=== PATIENT | female | born 1935 | race Caucasian/White ===

== ENCOUNTER 2017-03-23 18:56 | Inpatient (IN) ==
[2017-03-23] MEDS ORDERED: 0.9 % Sodium Chloride 500 ML ONE (20:42)
[2017-03-23] MEDS ORDERED: Ondansetron 4 MG/2 ML VIAL IVP PRN (20:52)
[2017-03-23] MEDS ORDERED: Naloxone 0.4 MG/ML INJ IVP PRN (20:52)
[2017-03-23] MEDS ORDERED: Acetaminophen 325 MG TABLET PO PRN (20:52)
[2017-03-23] MEDS ORDERED: dilTIAZem HCl 60 MG TABLET PO SCH (21:30)
--- NOTE | 2017-03-23 21:30 | Internal Med History&Physical ---
Date of Encounter: 03/23/17 Time of Encounter: 21:10 Assessment and Plan (1) Atrial fibrillation with rapid ventricular response Current visit: Yes Status: Acute Patient has a history of permanent atrial fibrillation on Cardizem 240 mg extended release in the morning and on Coumadin. After her physical therapy session, the patient started experiencing palpitations and was found to have rapid ventricular response with her atrial fibrillation. EKG reveals atrial fibrillation with RVR. Patient will be admitted to inpatient status. Expected to be in the hospital for at least 2 midnights. Expected discharge disposition is back to inpatient rehabilitation facility. High risk due to risk of lethal arrhythmias. Patient has already been started on Cardizem drip at 5 mg per hour. Will titrate to achieve heart rate less than 90/min. Resume long-acting Cardizem tomorrow morning. Short-acting Cardizem tonight. Patient may need additional beta luiz or increasing the dose of Cardizem depending on response to therapy. Continue Coumadin for goal INR between 2-3. Will obtain records from [facility] regarding her recent echocardiogram and regarding her CVA stay. (2) CAD (coronary artery disease) Current visit: Yes Status: Chronic Status post CABG and pig valve replacement in 1995. Stable without angina currently. Continue aspirin and statin. Qualifiers: Coronary Disease-Associated Artery/Lesion type: elem artery [place] vs. transplanted heart: elem heart Associated angina: without angina Qualified Code(s): I25.10 - Atherosclerotic heart disease of elem coronary artery without angina pectoris (3) CVA (cerebral vascular accident) Current visit: Yes Status: Chronic CVA early March at [facility]. Will obtain records from the same. Continue aspirin and statin with Coumadin. Qualifiers: CVA mechanism: unspecified Qualified Code(s): I63.9 - Cerebral infarction, unspecified (4) GERD (gastroesophageal reflux disease) Current visit: Yes Status: Chronic Stable. Home medications. Qualifiers: Esophagitis presence: esophagitis presence not specified Qualified Code(s) : K21.9 - Gastro-esophageal reflux disease without esophagitis Internal Medicine - H&P: HPI Chief complaint: Palpitations Admitted From: Hospital to Hospital Transfer Plans for Post Hospital Care: Transfer Inp Rehab Fac History of present illness: Ms. Louis is a 81 year old female who was transferred from [facility] due to atrial fibrillation with rapid ventricular response. The patient is currently accompanied by the who has assisted with history. The patient was at her baseline in February. Early March, she suffered an acute CVA and was transferred to [facility] where she was taking care of for her CVA. Apparently, she was diagnosed with atrial fibrillation in the month of February when she went to an urgent care facility with palpitations. And [facility], she was placed on heparin drip and transitioned to Coumadin for atrial fibrillation. She was discharged to inpatient rehabilitation facility. The patient has been participating with rehabilitation. According to the , today the patient participating with physical therapy and was doing extremely well. After her therapy session, the patient started experiencing palpitations. Hence, she was sent to the emergency department and found to have atrial fibrillation with rapid and regular response. She has been started on a Cardizem drip and transferred to [facility] for further management. Currently , patient reports palpitations and some shortness of breath. She denies orthopnea, PND, chest pain, cough or wheezing. She reports some chills but denies any fevers. She reports feeling lightheaded. She denies any headache or weakness in her arms or legs. She does report some difficulty with her speech. She denies any abdominal pain, nausea, vomiting. She denies any diarrhea but she does have some constipation. She denies any swelling in her feet or recent weight changes. Past Med Surg Social Fam HX - Past Medical History Attestation: Yes The following information was validated with the patient. Source: patient, obtained from family Medical history: arthritis, atrial fibrillation, cancer, CHF, coronary artery disease, CVA, GERD, hyperlipidemia, seizures Psychiatric history: no psych history - Past Surgical History Surgical History: cholecystectomy, coronary bypass (CABG), heart valve replacement (Aortic valve, bioprosthetic), herniorrhaphy, other (Partial small bowel resection for cancer) - Social History Smoking Status: Never smoker Smokeless Tobacco Status: No Alcohol use: none Drug use: none Current living situation: Home, With Family Activity Level: Uses cane/walker Recent Out of Country Travel Within the Last 8 Weeks: No Exposure or Possible Exposure to Illness During Travel: No - Additional Family History Additional family history: Reviewed; not pertinent Internal Medicine - H&P: Meds Furosemide [Lasix] 40 mg PO DAILY 05/03/16 [History] Aspirin 81 mg PO DAILY 03/12/17 [History] Diltiazem CD (24hr) [Cardizem CD] 240 mg PO DAILY 03/23/17 [History] Enoxaparin [Lovenox] 50 mg SQ BID 03/23/17 [History] Nitroglycerin [Nitrostat] 0.4 mg SL AD PRN 03/23/17 [History] Potassium Chloride [Klor-Con 10] 20 meq PO DAILY 03/23/17 [History] Sennosides [Senna] 8.6 mg PO BID 03/23/17 [History] Warfarin [Coumadin] 1 mg PO 1800 03/23/17 [History] Allergies Penicillins Allergy (Verified 05/03/16 02:16) Swelling of Lip/Tongue/Throat Sulfa (Sulfonamide Antibiotics) Allergy (Verified 05/03/16 02:16) Rash All Systems PM: A 10-system review of systems was performed and is negative for pertinent findings except as documented above in the HPI. Review of systems: 10 systems have been reviewed and are negative except as mentioned in the history of present illness - Constitutional Vitals: Temp Pulse Resp BP Pulse Ox 97.5 F L 118 17 139/83 99 03/23/17 20:42 03/23/17 20:42 03/23/17 20:42 03/23/17 20:42 03/23/17 20:42 Exam: Gen.: Lying in bed. Mild distress. Eyes: Pupils equal, round and reactive to light. Extraocular muscles intact. ENT: Dry mucous membranes. No oropharyngeal erythema or discharge. Chest: Clear to auscultation bilaterally. No adventitious sounds present. CVS: First and second heart sounds present. No murmurs, rubs or gallops. Irregularly irregular rate and rhythm. Tachycardia present. Midline CABG scar present. Abdomen: Soft, nontender, nondistended. Bowel sounds present. No hepatosplenomegaly. Skin: No decubitus ulcers appreciated. BUTCHER ASSISTANT: Power of 5/5 in left upper extremity and bilateral lower extremity is. Power of 4/5 in the right upper extremity. Psychiatric: Alert, awake and oriented to time, place and person. Lymphatic system: No lymphadenopathy appreciated Internal Med - H&P Results - Labs Labs: Labs from [facility] reviewed-WBC count 11.9; INR 1.8; sodium 140, potassium 4, chloride 95, bicarbonate 23, GFR 51, glucose 140 - EKG Data -: EKG Interpreted by Myself Rate: tachycardia (Atrial fibrillation with rapid ventricular response) - Diagnostic Studies Chest x-ray Status: image reviewed by me (Status post CABG in the past. No acute infiltrates or abnormalities demonstrated.)
[2017-03-23] MEDS: dilTIAZem HCl 60 MG TABLET PO SCH (23:40)
[2017-03-24] MEDS: dilTIAZem HCl 60 MG TABLET PO SCH (04:14)
[2017-03-24] MEDS ORDERED: *HR* Warfarin 1 MG TABLET PO SCH (05:00)
[2017-03-24 05:28] LABS: Basophils % 0.4 %; Eosinophils # 0.2 K/mcL (0.0-0.6); Eosinophils % 1.7 %; Hematocrit 36.9 % (35.3-44.9); Hemoglobin 12.3 g/dL (11.5-15.4); Immature Granulocytes % 0.5 % (0-4); Lymphocytes # 1.3 K/mcL (0.6-4.6); Lymphocytes % 13.7 %; Mean Corpuscular HGB Conc 33.3 g/dL (31.6-35.5); Mean Corpuscular Hemoglobin 30.4 pg (28.0-33.3); Mean Corpuscular Volume 91.3 fL (83.0-100.0); Mean Platelet Volume 11.1 fL (9.4-12.4); Monocytes # 0.9 K/mcL (0.0-1.3); Monocytes % 9.4 %; Platelet Count 183 K/mcL (140-400); Red Blood Count 4.04 M/mcL (3.82-4.97); Red Cell Distribution Width 13.5 % (11.5-14.5); Segmented Neutrophils % 74.3 %
[2017-03-24 05:49] LABS: INR 1.4; Prothrombin Time 15.2 Seconds (9.4-12.1)
[2017-03-24 05:53] LABS: Alanine Aminotransferase 22 Units/L (0-55); Albumin 2.8 g/dL (3.5-5.0); Albumin/Globulin Ratio 0.9 (1.1-2.2); Alkaline Phosphatase 69 Units/L (38-126); Aspartate Amino Transferase 26 Units/L (5-34); BUN/Creatinine Ratio 22 (6-26); Bilirubin,Total 0.6 mg/dL (0.2-1.2); Blood Urea Nitrogen 21 mg/dL (7-20); Calcium 9.3 mg/dL (8.6-10.8); Carbon Dioxide 25 mEq/L (19-29); Chloride 104 mEq/L (98-109); Globulin 3.2 g/dL (2.4-3.5); Glucose 120 mg/dL (70-99); Osmolality,Calculated 290 (280-300); Potassium 3.8 mEq/L (3.5-4.5); Sodium 138 mEq/L (136-145); eGFR For African Americans > 60 (> 60); eGFR For Non-African Americans 56 (> 60)
[2017-03-24] MEDS ORDERED: *HR* Enoxaparin 40 MG/0.4 ML SYRINGE SQ SCH (08:30)
[2017-03-24] MEDS ORDERED: Diltiazem CD (24hr) 240 MG CAPSULE PO SCH (09:00)
[2017-03-24] MEDS ORDERED: Aspirin Enteric Coated 81 MG Tablet PO SCH (09:00)
[2017-03-24] MEDS ORDERED: Sennosides/Docusate Sodium TABLET PO SCH (09:00)
[2017-03-24 11:03] VITALS: BP 128/74
--- NOTE | 2017-03-24 14:01 | Discharge Summary ---
Date of Encounter: 03/24/17 Time of Encounter: 12:00 - Discharge Diagnosis (1) Atrial fibrillation with rapid ventricular response Priority: Primary Status: Acute (2) CAD (coronary artery disease) Priority: Secondary Status: Chronic Qualifiers: Coronary Disease-Associated Artery/Lesion type: [place] artery [place] vs. transplanted heart: [place] heart Associated angina: without angina Qualified Code(s): I25.10 - Atherosclerotic heart disease of [place] coronary artery without angina pectoris (3) CVA (cerebral vascular accident) Priority: Secondary Status: Chronic Qualifiers: CVA mechanism: other Qualified Code(s): I63.8 - Other cerebral infarction (4) GERD (gastroesophageal reflux disease) Priority: Secondary Status: Chronic Qualifiers: Esophagitis presence: esophagitis presence not specified Qualified Code(s) : K21.9 - Gastro-esophageal reflux disease without esophagitis - Discharge Medications Prescriptions: Metoprolol XL (24 HR) Succ [Toprol XL] 25 mg PO DAILY #30 tab.er.24h Home Medications: Furosemide [Lasix] 40 mg PO DAILY 05/03/16 [History] Aspirin 81 mg PO DAILY 03/12/17 [History] Diltiazem CD (24hr) [Cardizem CD] 240 mg PO DAILY 03/23/17 [History] Enoxaparin [Lovenox] 60 mg SQ BID 03/23/17 [History] Nitroglycerin [Nitrostat] 0.4 mg SL Q5M PRN 03/23/17 [History] Potassium Chloride [Klor-Con 10] 20 meq PO DAILY 03/23/17 [History] Metoprolol XL (24 HR) Succ [Toprol XL] 25 mg PO DAILY #30 tab.er.24h 03/24/17 [ Rx] Warfarin [Coumadin] 2 mg PO 1700 #0 03/24/17 [Rx] Allergies/Adverse Reactions: Allergies Penicillins Allergy (Verified 03/24/17 08:07) Swelling of Lip/Tongue/Throat Sulfa (Sulfonamide Antibiotics) Allergy (Verified 03/24/17 08:07) Rash Procedures/tests Complete & Pending: Procedures Performed prior 72 hours Category Date Time Status EKG [ECG 12 lead ECG] [ECG] Routine Y 03/23/17 21:30 Ordered Date of admission: 03/23/17 20:52 Primary care physician: PCP NO Consults: 03/23/17 21:31 Consult to Occupational Therapy [CONS] Routine Comment: Evaluate, develop and implement POC Reason for Consult: Weakness Consult to Physical Therapy [CONS] Routine Comment: Evaluate, develop and implement POC Reason for Consult: Weakness Consult to Speech Therapy [CONS] Routine Comment: Evaluate, develop and implement POC Reason for Consult: Recent CVA Call Completed: No 03/24/17 10:55 Consult to [place] [CONS] Routine Reason for SW Consult: RTN TO [facility] Discharging clinician: Xiomara Browning Anticipated date of discharge: 03/24/17 - Patient Status Disposition: Transfer SNF Condition: Fair Functional capacity at discharge: uses cane/walker Overall status at discharge: patient is progressing back to baseline - Discharge Instructions Follow Up With: NO,PCP [Primary Care Provider] - (Follow up with provider for the management of chronic medical conditions) - Diet and Activity Activity: as per physical therapy Diet: low fat, low cholesterol, low salt diet Hospital course: Ms. Louis is a 81 year old female patient with history of recent CVA, coronary artery disease, A. fib with RVR who is on Coumadin but subtherapeutic presented to the ER with complaints of atrial fibrillation with rapid ventricular response and palpitations. She had been participating in physical therapy when the symptoms began yesterday. In the ER, patient was started on intravenous Cardizem drip at 5 mg per hour. By the time shared that the floor, her heart rate is well controlled and she was transitioned to oral Cardizem. Since then her heart rate has been fairly well controlled and the patient was placed back on her to 40 mg of Cardizem CD. However while participating with physical therapy, it was noted that her heart rate was going up to the 110s and low 120s. She has then been started on Toprol-XL at 25 mg per day. With these 2 medications, her heart rate is now ranging between 60 and 80. She is to continue both these medications. It is expected that her heart rate would rise while she is participating in physical therapy and if she persists to have rapid ventricular response with heart rate greater than 120, her medications will need to be adjusted further. As she is still subtherapeutic, I would recommend continuing Lovenox and also increasing Coumadin dosage to 2 mg daily. Presently, she is feeling much better and is stable to be discharged back to half-way facility much earlier than expected. - Time Spent with Patient Total time spent providing and/or coordinating discharge services: Less than 30 minutes (25 min) - Constitutional Vitals: Temp Pulse Resp BP Pulse Ox 98.3 F 107 16 128/74 90 03/24/17 11:02 03/24/17 11:02 03/24/17 11:02 03/24/17 11:02 03/24/17 11:02 General appearance: Present: cooperative, A&O X 3, answers questions appropriately - Respiratory Respiratory exam: Present: CTAB. Absent: accessory muscle use, rales, rhonchi, wheezes - Cardiovascular Cardiovascular exam: Present: irregular rhythm, +S1, +S2. Absent: diastolic murmur, gallop, rubs, systolic murmur - Extremities Exam Extremities exam: Present: warm, radial pulses palpable and symetrical. Absent : calf tenderness, cyanotic, pedal edema - Neurological Exam Neurological exam: Present: alert, oriented X3. Absent: facial droop, speech deficit - Skin Skin exam: Present: dry, intact - Attending Attestation This document has been at least partially created by [employer] recognition technology by Dr. Browning. Errors in grammar, wording or other phrases may exist. If errors are found after the documentation is signed, they will be addressed individually in the addendum section of this document when appropriate.
--- NOTE | 2017-03-24 14:10 | Physician Discharge Referral ---
ExtendedCare Referral Info Provider in Charge after Transfer: PCP Institutional Level of Care: Skilled - Diagnosis (1) Atrial fibrillation with rapid ventricular response Priority: Primary Status: Acute (2) CAD (coronary artery disease) Priority: Secondary Status: Chronic (3) CVA (cerebral vascular accident) Priority: Secondary Status: Chronic (4) GERD (gastroesophageal reflux disease) Priority: Secondary Status: Chronic Prognosis: Fair Aware of Diagnosis: Patient, Family Aware of Prognosis: Patient, Family - Transfer Medications Home Medications: Furosemide [Lasix] 40 mg PO DAILY 05/03/16 [History] Aspirin 81 mg PO DAILY 03/12/17 [History] Diltiazem CD (24hr) [Cardizem CD] 240 mg PO DAILY 03/23/17 [History] Enoxaparin [Lovenox] 60 mg SQ BID 03/23/17 [History] Nitroglycerin [Nitrostat] 0.4 mg SL Q5M PRN 03/23/17 [History] Potassium Chloride [Klor-Con 10] 20 meq PO DAILY 03/23/17 [History] Metoprolol [Lopressor] 25 mg PO DAILY tablet 03/24/17 [Rx] Warfarin [Coumadin] 2 mg PO 1700 #0 03/24/17 [Rx] Allergies/Adverse Reactions: Allergies Penicillins Allergy (Verified 03/24/17 08:07) Swelling of Lip/Tongue/Throat Sulfa (Sulfonamide Antibiotics) Allergy (Verified 03/24/17 08:07) Rash - Respiratory Orders Smoking Cessation: Smoking cessation has been advised. For more information, call the [place] Tobacco Quit Line at 4-378-WWGA-NOW. - Advance Directives Code Status: Full Code CERTIFICATION: I certify that the transfer of the above named patient to an Extended Care Facility is necessary for the continuing treatment of the diagnosis listed. The above information is true and accurate reflection of patient's current condition. Confidential - Redisclosure prohibited without a patient's written consent.
[2017-03-24] MEDS ORDERED: Aminoglycoside Consult 1 EACH MC ONE (15:14)
[2017-03-24] MEDS ORDERED: Enoxaparin Weight Dosing SQ SCH (18:00)
[2017-03-24] MEDS ORDERED: Warfarin perPT PO PRN (18:00)
== END 2017-03-24 15:15 | DRG 310 ==
LOC: 2ANU
PROVIDERS: ADMIT Registered Nurse; ATTEND Internal Medicine

== ENCOUNTER 2020-12-03 17:12 | Inpatient (IN) ==
[2020-12-03] MEDS ORDERED: Acetaminophen 325 MG TABLET PO PRN (20:58)
[2020-12-03] MEDS ORDERED: Naloxone 0.4 MG/ML INJ IVP PRN (20:58)
[2020-12-03] MEDS: *HR* LORazepam 0.5 MG TABLET PO SCH (21:36)
[2020-12-03] MEDS: Cholecalciferol (D-3) 1,000 UNIT (25MCG) TABLET PO SCH (21:36)
[2020-12-03 21:56] LABS: Phosphorous 2.6 mg/dL (2.7-4.5); Troponin I 0.08 ng/mL (< 0.04)
[2020-12-03] MEDS ORDERED: Azithromycin 250 MG TABLET PO SCH (22:00)
[2020-12-03] MEDS ORDERED: Albuterol 2.5 MG/3 ML NEBULIZER IH PRN (22:03)
[2020-12-03] MEDS ORDERED: predniSONE 20 MG TABLET PO SCH (22:15)
[2020-12-03] MEDS ORDERED: Azithromycin 500 MG in 0.9 % Sodium Chloride 250 ML IVPB SCH (23:45)
[2020-12-03] MEDS: MethylPREDNISolone 40 MG/ML VIAL IVP SCH (23:47)
[2020-12-03] MEDS: Albuterol 2.5 MG/3 ML NEBULIZER IH SCH (23:50)
[2020-12-04 03:35] LABS: BUN/Creatinine Ratio 30 (6-26); Blood Urea Nitrogen 16 mg/dL (8-23); Calcium 8.8 mg/dL (8.6-10.3); Carbon Dioxide 28 mEq/L (23-29); Chloride 106 mEq/L (98-107); Glucose 117 mg/dL (70-105); Osmolality,Calculated 286 (280-300); Potassium 4.6 mEq/L (3.5-5.1); Sodium 137 mEq/L (136-145); eGFR For African Americans > 60 (> 60); eGFR For Non-African Americans > 60 (> 60)
[2020-12-04 03:40] LABS: Basophils % 0.4 %; Eosinophils # 0.1 K/mcL (0.0-0.6); Hematocrit 35.7 % (35.3-44.9); Hemoglobin 11.4 g/dL (11.5-15.4); Immature Granulocytes % 0.2 % (0-4); Immature Platelets 7.9 % (1.1-6.1); Lymphocytes # 0.7 K/mcL (0.6-4.6); Lymphocytes % 14.3 %; Mean Corpuscular HGB Conc 31.9 g/dL (31.6-35.5); Mean Corpuscular Hemoglobin 30.3 pg (28.0-33.3); Mean Corpuscular Volume 94.9 fL (83.0-100.0); Mean Platelet Volume 11.5 fL (9.4-12.4); Monocytes # 0.2 K/mcL (0.0-1.3); Monocytes % 3.9 %; Neutrophils # 3.9 K/mcL (1.6-8.9); Platelet Count 107 K/mcL (140-400); Red Blood Count 3.76 M/mcL (3.82-4.97); Red Cell Distribution Width 12.7 % (11.5-14.5); Segmented Neutrophils % 80.2 %; White Blood Count 4.9 K/mcL (4.3-11.1)
[2020-12-04] MEDS: Albuterol 2.5 MG/3 ML NEBULIZER IH SCH ×6 (03:42→23:05)
[2020-12-04 03:54] LABS: INR 1.2; Prothrombin Time 13.4 Seconds (9.4-12.1)
[2020-12-04] MEDS ORDERED: Perflutren Lipid Microsphere 1.3 ML in 0.9 % Sodium Chloride 8.7 ML IVP PRN ×2 (09:20→15:59)
[2020-12-04] MEDS ORDERED: levoFLOXacin 750 MG/150 ML 750 MG/150 ML BAG IVPB SCH (09:30)
[2020-12-04] MEDS: *HR* LORazepam 0.5 MG TABLET PO SCH ×3 (10:47→21:24)
[2020-12-04] MEDS: Furosemide 20 MG TABLET PO SCH (10:50)
[2020-12-04] MEDS: Cyanocobalamin (B-12) 1,000 MCG TABLET PO SCH (10:50)
[2020-12-04] MEDS: MethylPREDNISolone 40 MG/ML VIAL IVP SCH (10:50)
[2020-12-04] MEDS: Aspirin 81 MG TAB.CHEW PO SCH (10:50)
[2020-12-04] MEDS: *HR* Digoxin 0.125 MG TABLET PO SCH (10:50)
[2020-12-04] MEDS: Cholecalciferol (D-3) 1,000 UNIT (25MCG) TABLET PO SCH (10:51)
[2020-12-04] MEDS: cefTRIAXone 1,000 MG in 0.9 % Sodium Chloride Mini Bag 100 ML IVPB SCH (17:29)
[2020-12-04] MEDS ORDERED: *HR* Warfarin 5 MG TABLET PO ONE (18:00)
[2020-12-04] MEDS ORDERED: Warfarin perPT PO PRN (18:00)
[2020-12-04] MEDS: Azithromycin 500 MG in 0.9 % Sodium Chloride 250 ML IVPB SCH (22:49)
[2020-12-05] MEDS: Albuterol 2.5 MG/3 ML NEBULIZER IH SCH ×6 (05:44→23:03)
[2020-12-05 05:46] LABS: INR 1.2; Prothrombin Time 13.7 Seconds (9.4-12.1)
[2020-12-05 06:04] LABS: Alanine Aminotransferase 79 Units/L (7-52); Albumin/Globulin Ratio 1.2 (1.1-2.2); Alkaline Phosphatase 49 Units/L (34-104); Aspartate Amino Transferase 107 Units/L (13-39); BUN/Creatinine Ratio 33 (6-26); Bilirubin,Total 0.3 mg/dL (0.3-1.0); Blood Urea Nitrogen 22 mg/dL (8-23); Calcium 9.1 mg/dL (8.6-10.3); Carbon Dioxide 28 mEq/L (23-29); Chloride 105 mEq/L (98-107); Globulin 2.6 g/dL (2.4-3.5); Glucose 126 mg/dL (70-105); Osmolality,Calculated 291 (280-300); Potassium 4.2 mEq/L (3.5-5.1); Sodium 138 mEq/L (136-145); Total Protein 5.6 g/dL (6.4-8.9); eGFR For African Americans > 60 (> 60); eGFR For Non-African Americans > 60 (> 60)
[2020-12-05 06:08] LABS: Hematocrit 33.2 % (35.3-44.9); Hemoglobin 10.7 g/dL (11.5-15.4); Mean Corpuscular HGB Conc 32.2 g/dL (31.6-35.5); Mean Corpuscular Hemoglobin 30.7 pg (28.0-33.3); Mean Corpuscular Volume 95.4 fL (83.0-100.0); Mean Platelet Volume 11.4 fL (9.4-12.4); Platelet Count 128 K/mcL (140-400); Red Blood Count 3.48 M/mcL (3.82-4.97); Red Cell Distribution Width 12.6 % (11.5-14.5); White Blood Count 6.3 K/mcL (4.3-11.1)
[2020-12-05] MEDS: Aspirin 81 MG TAB.CHEW PO SCH (08:52)
[2020-12-05] MEDS: Furosemide 20 MG TABLET PO SCH (08:52)
[2020-12-05] MEDS: *HR* Digoxin 0.125 MG TABLET PO SCH (08:52)
[2020-12-05] MEDS: Cholecalciferol (D-3) 1,000 UNIT (25MCG) TABLET PO SCH (08:52)
[2020-12-05] MEDS: Cyanocobalamin (B-12) 1,000 MCG TABLET PO SCH (08:53)
[2020-12-05] MEDS: cefTRIAXone 1,000 MG in 0.9 % Sodium Chloride Mini Bag 100 ML IVPB SCH (08:54)
[2020-12-05] MEDS ORDERED: *HR* LORazepam 0.5 MG TABLET PO PRN (10:04)
[2020-12-05] MEDS: *HR* LORazepam 0.5 MG TABLET PO SCH (10:11)
[2020-12-05] MEDS ORDERED: *HR* Warfarin 3 MG TABLET PO ONE (18:00)
[2020-12-05] MEDS: Azithromycin 500 MG in 0.9 % Sodium Chloride 250 ML IVPB SCH (23:11)
[2020-12-06 02:06] LABS: Hematocrit 34.5 % (35.3-44.9); Mean Corpuscular HGB Conc 31.9 g/dL (31.6-35.5); Mean Corpuscular Hemoglobin 30.3 pg (28.0-33.3); Mean Platelet Volume 10.7 fL (9.4-12.4); Platelet Count 142 K/mcL (140-400); Red Blood Count 3.63 M/mcL (3.82-4.97); Red Cell Distribution Width 12.8 % (11.5-14.5); White Blood Count 6.9 K/mcL (4.3-11.1)
[2020-12-06 02:09] LABS: INR 2.2; Prothrombin Time 24.8 Seconds (9.4-12.1)
[2020-12-06 02:26] LABS: Alanine Aminotransferase 106 Units/L (7-52); Albumin 2.9 g/dL (3.5-5.7); Albumin/Globulin Ratio 1.1 (1.1-2.2); Alkaline Phosphatase 54 Units/L (34-104); Aspartate Amino Transferase 95 Units/L (13-39); BUN/Creatinine Ratio 32 (6-26); Bilirubin,Total 0.4 mg/dL (0.3-1.0); Blood Urea Nitrogen 23 mg/dL (8-23); Carbon Dioxide 35 mEq/L (23-29); Chloride 102 mEq/L (98-107); Globulin 2.6 g/dL (2.4-3.5); Glucose 86 mg/dL (70-105); Osmolality,Calculated 291 (280-300); Potassium 4.4 mEq/L (3.5-5.1); Sodium 139 mEq/L (136-145); Total Protein 5.5 g/dL (6.4-8.9); eGFR For African Americans > 60 (> 60); eGFR For Non-African Americans > 60 (> 60)
[2020-12-06] MEDS: Albuterol 2.5 MG/3 ML NEBULIZER IH SCH ×6 (03:15→23:15)
[2020-12-06] MEDS: Cholecalciferol (D-3) 1,000 UNIT (25MCG) TABLET PO SCH (08:51)
[2020-12-06] MEDS: *HR* Digoxin 0.125 MG TABLET PO SCH (08:52)
[2020-12-06] MEDS: Furosemide 20 MG TABLET PO SCH (08:52)
[2020-12-06] MEDS: cefTRIAXone 1,000 MG in 0.9 % Sodium Chloride Mini Bag 100 ML IVPB SCH (08:52)
[2020-12-06] MEDS: Cyanocobalamin (B-12) 1,000 MCG TABLET PO SCH (08:53)
[2020-12-06] MEDS: Aspirin 81 MG TAB.CHEW PO SCH (08:53)
[2020-12-06] MEDS: Ondansetron ODT 4 MG TAB.RAPDIS SL PRN ×2 (12:56→22:32)
[2020-12-06] MEDS ORDERED: *HR* Warfarin 0.5 MG TABLET PO ONE (18:00)
[2020-12-06] MEDS: Azithromycin 500 MG in 0.9 % Sodium Chloride 250 ML IVPB SCH (22:32)
[2020-12-07] MEDS: Albuterol 2.5 MG/3 ML NEBULIZER IH SCH ×6 (03:23→23:09)
[2020-12-07 06:48] LABS: Hematocrit 34.6 % (35.3-44.9); Hemoglobin 11.1 g/dL (11.5-15.4); Mean Corpuscular HGB Conc 32.1 g/dL (31.6-35.5); Mean Corpuscular Hemoglobin 30.5 pg (28.0-33.3); Mean Corpuscular Volume 95.1 fL (83.0-100.0); Mean Platelet Volume 10.8 fL (9.4-12.4); Platelet Count 162 K/mcL (140-400); Red Blood Count 3.64 M/mcL (3.82-4.97); White Blood Count 6.4 K/mcL (4.3-11.1)
[2020-12-07 06:50] LABS: INR 2.4
[2020-12-07 07:25] LABS: Alanine Aminotransferase 68 Units/L (7-52); Albumin 2.8 g/dL (3.5-5.7); Alkaline Phosphatase 51 Units/L (34-104); Aspartate Amino Transferase 36 Units/L (13-39); BUN/Creatinine Ratio 27 (6-26); Bilirubin,Total 0.4 mg/dL (0.3-1.0); Blood Urea Nitrogen 18 mg/dL (8-23); Calcium 8.9 mg/dL (8.6-10.3); Carbon Dioxide 34 mEq/L (23-29); Chloride 101 mEq/L (98-107); Globulin 2.7 g/dL (2.4-3.5); Glucose 99 mg/dL (70-105); Osmolality,Calculated 290 (280-300); Potassium 4.3 mEq/L (3.5-5.1); Sodium 139 mEq/L (136-145); Total Protein 5.5 g/dL (6.4-8.9); eGFR For African Americans > 60 (> 60); eGFR For Non-African Americans > 60 (> 60)
[2020-12-07] MEDS: Cholecalciferol (D-3) 1,000 UNIT (25MCG) TABLET PO SCH (10:25)
[2020-12-07] MEDS: Aspirin 81 MG TAB.CHEW PO SCH (10:25)
[2020-12-07] MEDS: *HR* Digoxin 0.125 MG TABLET PO SCH (10:26)
[2020-12-07] MEDS: Furosemide 20 MG TABLET PO SCH (10:26)
[2020-12-07] MEDS: Cyanocobalamin (B-12) 1,000 MCG TABLET PO SCH (10:27)
[2020-12-07] MEDS: cefTRIAXone 1,000 MG in 0.9 % Sodium Chloride Mini Bag 100 ML IVPB SCH (10:27)
[2020-12-07] MEDS ORDERED: *HR* Warfarin 2.5 MG TABLET PO ONE (18:00)
[2020-12-07] MEDS: Azithromycin 500 MG in 0.9 % Sodium Chloride 250 ML IVPB SCH (21:54)
[2020-12-07 23:23] LABS: Adenovirus Not Detected (Not Detect); Bordetella Pertussis Not Detected (Not Detect); Chlamydophila pneumoniae Not Detected (Not Detect); Coronavirus 229E Not Detected (Not Detect); Coronavirus HKU1 Not Detected (Not Detect); Coronavirus NL63 Not Detected (Not Detect); Coronavirus OC43 Not Detected (Not Detect); Human Metapneumovirus Not Detected (Not Detect); Human Rhinovirus/Enterovirus Not Detected (Not Detect); Influenza A Subtype 2009 H1 Not Detected (Not Detect); Influenza B Not Detected (Not Detect); Mycoplasma pneumoniae Not Detected (Not Detect); Parainfluenza Virus 1 Not Detected (Not Detect); Parainfluenza Virus 2 Not Detected (Not Detect); Parainfluenza Virus 3 Not Detected (Not Detect); Parainfluenza Virus 4 Not Detected (Not Detect); Respiratory Syncytial Virus Not Detected (Not Detect); SARS-CoV-2 Not Detected (Not Detect)
[2020-12-08 02:19] LABS: Hematocrit 34.2 % (35.3-44.9); Mean Corpuscular HGB Conc 32.2 g/dL (31.6-35.5); Mean Corpuscular Hemoglobin 30.5 pg (28.0-33.3); Mean Corpuscular Volume 94.7 fL (83.0-100.0); Mean Platelet Volume 11.2 fL (9.4-12.4); Platelet Count 164 K/mcL (140-400); Red Blood Count 3.61 M/mcL (3.82-4.97); Red Cell Distribution Width 13.1 % (11.5-14.5); White Blood Count 6.5 K/mcL (4.3-11.1)
[2020-12-08 02:20] LABS: INR 2.4; Prothrombin Time 26.8 Seconds (9.4-12.1)
[2020-12-08 02:44] LABS: Alanine Aminotransferase 53 Units/L (7-52); Albumin 2.9 g/dL (3.5-5.7); Albumin/Globulin Ratio 1.2 (1.1-2.2); Alkaline Phosphatase 47 Units/L (34-104); Aspartate Amino Transferase 28 Units/L (13-39); BUN/Creatinine Ratio 20 (6-26); Bilirubin,Total 0.4 mg/dL (0.3-1.0); Blood Urea Nitrogen 15 mg/dL (8-23); Calcium 8.6 mg/dL (8.6-10.3); Carbon Dioxide 31 mEq/L (23-29); Chloride 102 mEq/L (98-107); Globulin 2.5 g/dL (2.4-3.5); Glucose 96 mg/dL (70-105); Osmolality,Calculated 289 (280-300); Potassium 4.4 mEq/L (3.5-5.1); Sodium 139 mEq/L (136-145); Total Protein 5.4 g/dL (6.4-8.9); eGFR For African Americans > 60 (> 60); eGFR For Non-African Americans > 60 (> 60)
[2020-12-08] MEDS: Albuterol 2.5 MG/3 ML NEBULIZER IH SCH ×3 (03:37→11:42)
[2020-12-08] MEDS: Furosemide 20 MG TABLET PO SCH (09:28)
[2020-12-08] MEDS: *HR* Digoxin 0.125 MG TABLET PO SCH (09:28)
[2020-12-08] MEDS: Aspirin 81 MG TAB.CHEW PO SCH (09:28)
[2020-12-08] MEDS: Cholecalciferol (D-3) 1,000 UNIT (25MCG) TABLET PO SCH (09:29)
[2020-12-08] MEDS: cefTRIAXone 1,000 MG in 0.9 % Sodium Chloride Mini Bag 100 ML IVPB SCH (09:29)
[2020-12-08] MEDS: Cyanocobalamin (B-12) 1,000 MCG TABLET PO SCH (09:30)
[2020-12-08 11:27] VITALS: BP 92/53
[2020-12-08] MEDS ORDERED: *HR* Warfarin 2.5 MG TABLET PO ONE (18:00)
== END 2020-12-08 14:25 | disposition other institution (70) | DRG 308 ==
LOC: 3BNU 19:30 → SUATTDRO 19:30 → INTOOBSV 19:30
PROVIDERS: ADMIT Internal Medicine; ATTEND Registered Nurse

== ENCOUNTER 2021-01-12 16:30 | Inpatient (IN) ==
[2021-01-12] MEDS ORDERED: Acetaminophen 325 MG TABLET PO PRN (20:31)
[2021-01-12] MEDS ORDERED: Naloxone 0.4 MG/ML INJ IVP PRN (20:31)
[2021-01-12] MEDS ORDERED: Ondansetron 4 MG/2 ML VIAL IVP PRN (20:31)
[2021-01-12] MEDS ORDERED: *HR* HYDROcodone/Acet 5/325 mg TABLET PO PRN (20:31)
[2021-01-12] MEDS ORDERED: *HR* LORazepam 0.5 MG TABLET PO PRN (22:11)
[2021-01-12] MEDS: rOPINIRole 1 MG TABLET PO SCH (22:39)
[2021-01-13 04:53] LABS: Basophils # 0.1 K/mcL (0.0-0.2); Basophils % 0.7 %; Eosinophils # 0.4 K/mcL (0.0-0.6); Eosinophils % 4.1 %; Hematocrit 34.8 % (35.3-44.9); Hemoglobin 11.3 g/dL (11.5-15.4); Immature Granulocytes % 0.2 % (0-4); Lymphocytes # 1.3 K/mcL (0.6-4.6); Lymphocytes % 14.8 %; Mean Corpuscular HGB Conc 32.5 g/dL (31.6-35.5); Mean Corpuscular Hemoglobin 30.3 pg (28.0-33.3); Mean Corpuscular Volume 93.3 fL (83.0-100.0); Mean Platelet Volume 11.7 fL (9.4-12.4); Monocytes # 0.6 K/mcL (0.0-1.3); Monocytes % 6.5 %; Neutrophils # 6.6 K/mcL (1.6-8.9); Platelet Count 135 K/mcL (140-400); Red Blood Count 3.73 M/mcL (3.82-4.97); Segmented Neutrophils % 73.7 %; White Blood Count 8.9 K/mcL (4.3-11.1)
[2021-01-13 05:03] LABS: INR 3.5; Prothrombin Time 38.6 Seconds (9.4-12.1)
[2021-01-13 05:09] LABS: BUN/Creatinine Ratio 30 (6-26); Blood Urea Nitrogen 16 mg/dL (8-23); Calcium 8.7 mg/dL (8.6-10.3); Carbon Dioxide 17 mEq/L (23-29); Chloride 116 mEq/L (98-107); Glucose 83 mg/dL (70-105); Osmolality,Calculated 290 (280-300); Potassium 3.9 mEq/L (3.5-5.1); Sodium 140 mEq/L (136-145); eGFR For African Americans > 60 (> 60); eGFR For Non-African Americans > 60 (> 60)
[2021-01-13] MEDS ORDERED: 0.9 % Sodium Chloride 250 ML IVC SCH (08:00)
[2021-01-13] MEDS: *HR* Digoxin 0.125 MG TABLET PO SCH (08:06)
[2021-01-13] MEDS: Metoprolol XL (24 HR) Succ 25 MG TAB.ER.24H PO SCH ×3 (08:06→22:44)
[2021-01-13] MEDS: Venlafaxine XR (24 HR) 75 MG CAP.ER.24H PO SCH (08:06)
[2021-01-13] MEDS ORDERED: Furosemide 20 MG TABLET PO SCH (09:00)
[2021-01-13] MEDS ORDERED: Metoprolol XL (24 HR) Succ 25 MG TAB.ER.24H PO ONE (14:26)
[2021-01-13] MEDS ORDERED: OLANZapine 5 MG TAB.RAPDIS PO SCH (21:00)
[2021-01-13] MEDS: rOPINIRole 1 MG TABLET PO SCH (22:44)
[2021-01-14 01:14] LABS: Basophils % 0.4 %; Eosinophils # 0.3 K/mcL (0.0-0.6); Eosinophils % 3.1 %; Hematocrit 36.1 % (35.3-44.9); Hemoglobin 11.5 g/dL (11.5-15.4); Immature Granulocytes % 0.2 % (0-4); Lymphocytes # 1.5 K/mcL (0.6-4.6); Lymphocytes % 14.6 %; Mean Corpuscular HGB Conc 31.9 g/dL (31.6-35.5); Mean Corpuscular Hemoglobin 29.9 pg (28.0-33.3); Mean Corpuscular Volume 93.8 fL (83.0-100.0); Mean Platelet Volume 11.9 fL (9.4-12.4); Monocytes # 0.8 K/mcL (0.0-1.3); Monocytes % 7.7 %; Neutrophils # 7.3 K/mcL (1.6-8.9); Platelet Count 137 K/mcL (140-400); Red Blood Count 3.85 M/mcL (3.82-4.97); Red Cell Distribution Width 14.1 % (11.5-14.5); White Blood Count 9.9 K/mcL (4.3-11.1)
[2021-01-14 01:23] LABS: INR 1.8
[2021-01-14 01:32] LABS: BUN/Creatinine Ratio 30 (6-26); Blood Urea Nitrogen 18 mg/dL (8-23); Calcium 8.6 mg/dL (8.6-10.3); Carbon Dioxide 18 mEq/L (23-29); Chloride 110 mEq/L (98-107); Glucose 110 mg/dL (70-105); Magnesium 1.7 mg/dL (1.6-2.6); Osmolality,Calculated 285 (280-300); Potassium 3.9 mEq/L (3.5-5.1); Sodium 136 mEq/L (136-145); eGFR For African Americans > 60 (> 60); eGFR For Non-African Americans > 60 (> 60)
[2021-01-14] MEDS: Venlafaxine XR (24 HR) 75 MG CAP.ER.24H PO SCH (08:52)
[2021-01-14] MEDS: Metoprolol XL (24 HR) Succ 25 MG TAB.ER.24H PO SCH ×2 (08:52→19:57)
[2021-01-14] MEDS: *HR* Digoxin 0.125 MG TABLET PO SCH (08:53)
[2021-01-14] MEDS ORDERED: Furosemide 20 MG/2 ML VIAL IVP SCH (09:00)
[2021-01-14] MEDS ORDERED: *HR* FentaNYL (PF) 100 MCG/2 ML VIAL IVP PRN (09:22)
[2021-01-14] MEDS ORDERED: Ondansetron 4 MG/2 ML VIAL IVP PRN ×2 (09:22→13:09)
[2021-01-14] MEDS ORDERED: Nitroglycerin 0.4 MG TAB.SUBL SL PRN ×2 (09:22→13:09)
[2021-01-14] MEDS ORDERED: Albuterol 2.5 MG/3 ML NEBULIZER IH PRN ×2 (09:22→13:09)
[2021-01-14] MEDS ORDERED: Naloxone 0.4 MG/ML INJ IVP PRN ×2 (09:22→13:09)
[2021-01-14] MEDS ORDERED: Lidocaine -MPF 2% 2 ML VIAL ONE (10:05)
[2021-01-14] MEDS ORDERED: *HR* Propofol 200 MG/20 ML VIAL IVP ONE (10:06)
[2021-01-14] MEDS ORDERED: Ethanol\\Acetic Acid\\Na Ace\\Ben 1,000 ML IRRIG.SOLN IR ONE (10:09)
[2021-01-14] MEDS ORDERED: Vancomycin 1,000 MG VIAL ONE (10:09)
[2021-01-14] MEDS ORDERED: Lidocaine HCL 4 ML Topical Solution (Laryng-O-Jet Kit Sterile Pak) TP ONE (10:10)
[2021-01-14] MEDS ORDERED: Heparin 1,000 UNITS/500 mL 500 ML ONE (10:12)
[2021-01-14] MEDS ORDERED: Ondansetron 4 MG/2 ML VIAL ONE (10:14)
[2021-01-14] MEDS ORDERED: Dexamethasone 4 MG/ML VIAL ONE (10:14)
[2021-01-14] MEDS ORDERED: *HR* FentaNYL (PF) 100 MCG/2 ML VIAL ONE (10:14)
[2021-01-14] MEDS ORDERED: Clindamycin 900 MG/50 ML 900 MG/50 ML IV.SOLN IVPB ONE (10:29)
[2021-01-14] MEDS ORDERED: Povidone-Iodine 45 ML, Sodium Chloride IRRigation 1,000 ML IR ONE (12:05)
[2021-01-14 13:07] LABS: Hematocrit 36.9 % (35.3-44.9); Hemoglobin 11.8 g/dL (11.5-15.4)
[2021-01-14] MEDS ORDERED: *HR* Promethazine 25 MG/ML VIAL IM PRN (13:09)
[2021-01-14] MEDS ORDERED: Sennosides 8.6 MG TABLET PO PRN (13:09)
[2021-01-14] MEDS ORDERED: MOM Conc 10 ML UD.LIQ PO PRN (13:09)
[2021-01-14] MEDS ORDERED: *HR* LORazepam 0.5 MG TABLET PO PRN (13:09)
[2021-01-14] MEDS ORDERED: HYDROcodone BIT/Homatropine 5 MG TABLET PO PRN (13:09)
[2021-01-14] MEDS ORDERED: D5% in Water 1,000 ML IVC PRN (13:09)
[2021-01-14] MEDS ORDERED: *HR* Dextrose 50 % in Water (Vial) 50 ML VIAL IVP PRN (13:09)
[2021-01-14] MEDS ORDERED: *HR* OxyCODONE Immed Rel 5 MG TABLET PO PRN (13:09)
[2021-01-14] MEDS ORDERED: Ringers Solution, Lactated 1,000 ML IVC SCH (13:09)
[2021-01-14] MEDS ORDERED: Dextrose Gel 15 GM/37.5 ML TUBE PO PRN ×2 (13:09)
[2021-01-14] MEDS: Insulin LISPRO 300 UNITS/3 ML VIAL SUBQ SCH ×3 (14:28→20:05)
[2021-01-14] MEDS ORDERED: Ringers Solution, Lactated 500 ML IVC SCH (14:58)
[2021-01-14 16:50] LABS: INR 1.7; Prothrombin Time 19.5 Seconds (9.4-12.1)
[2021-01-14] MEDS ORDERED: *HR* Heparin 5,000 UNIT/ML VIAL IVP PRN ×2 (17:40)
[2021-01-14] MEDS ORDERED: Heparin 25,000UNIT/250ML 1/2NS 25,000 UNIT/250 ML IV.SOLN IVC SCH (17:45)
[2021-01-14] MEDS ORDERED: *HR* Warfarin 2 MG TABLET PO SCH (18:00)
[2021-01-14] MEDS: Ascorbic Acid 500 MG TABLET PO SCH (18:22)
[2021-01-14] MEDS: Clindamycin 900 MG/50 ML 900 MG/50 ML IV.SOLN IVPB SCH (19:56)
[2021-01-14] MEDS ORDERED: OLANZapine 5 MG TAB.RAPDIS PO SCH (21:00)
[2021-01-14 22:27] LABS: Hematocrit 34.2 % (35.3-44.9); Hemoglobin 10.9 g/dL (11.5-15.4)
[2021-01-15 01:25] LABS: Red Blood Count 3.55 M/mcL (3.82-4.97); Red Cell Distribution Width 13.8 % (11.5-14.5)
[2021-01-15 01:26] LABS: Basophils % 0.2 %; Hematocrit 33.5 % (35.3-44.9); Hemoglobin 10.7 g/dL (11.5-15.4); Immature Granulocytes % 0.4 % (0-4); Immature Platelets 7.7 % (1.1-6.1); Lymphocytes # 0.8 K/mcL (0.6-4.6); Mean Corpuscular HGB Conc 31.9 g/dL (31.6-35.5); Mean Corpuscular Hemoglobin 30.1 pg (28.0-33.3); Mean Corpuscular Volume 94.4 fL (83.0-100.0); Mean Platelet Volume 11.9 fL (9.4-12.4); Monocytes # 0.6 K/mcL (0.0-1.3); Monocytes % 6.8 %; Neutrophils # 6.8 K/mcL (1.6-8.9); Platelet Count 141 K/mcL (140-400); Segmented Neutrophils % 82.6 %; White Blood Count 8.2 K/mcL (4.3-11.1)
[2021-01-15] MEDS: Clindamycin 900 MG/50 ML 900 MG/50 ML IV.SOLN IVPB SCH (03:06)
[2021-01-15] MEDS: Insulin LISPRO 300 UNITS/3 ML VIAL SUBQ SCH ×4 (08:09→20:58)
[2021-01-15] MEDS ORDERED: *HR* OxyCODONE Immed Rel 5 MG TABLET PO PRN (08:32)
[2021-01-15] MEDS ORDERED: Furosemide 20 MG TABLET PO SCH (09:00)
[2021-01-15] MEDS ORDERED: Furosemide 20 MG/2 ML VIAL IVP SCH (09:00)
[2021-01-15] MEDS ORDERED: *HR* Digoxin 0.125 MG TABLET PO SCH (09:00)
[2021-01-15 09:49] LABS: BUN/Creatinine Ratio 35 (6-26); Blood Urea Nitrogen 36 mg/dL (8-23); Carbon Dioxide 22 mEq/L (23-29); Chloride 108 mEq/L (98-107); Glucose 111 mg/dL (70-105); Osmolality,Calculated 297 (280-300); Potassium 4.1 mEq/L (3.5-5.1); Sodium 139 mEq/L (136-145); eGFR For African Americans > 60 (> 60); eGFR For Non-African Americans 52 (> 60)
[2021-01-15 09:51] LABS: INR 4.3
[2021-01-15 09:54] LABS: Prothrombin Time 47.7 Seconds (9.4-12.1)
[2021-01-15] MEDS: Metoprolol XL (24 HR) Succ 25 MG TAB.ER.24H PO SCH ×2 (11:03→21:09)
[2021-01-15] MEDS: Multivit/Ca/Min/Fe/FA 1 TAB TABLET PO SCH (11:03)
[2021-01-15] MEDS: Ascorbic Acid 500 MG TABLET PO SCH ×2 (11:03→17:43)
[2021-01-15] MEDS: Venlafaxine XR (24 HR) 75 MG CAP.ER.24H PO SCH (11:03)
[2021-01-15 11:25] LABS: Hematocrit 31.8 % (35.3-44.9); Hemoglobin 10.4 g/dL (11.5-15.4)
[2021-01-15 11:36] LABS: INR 4.2
[2021-01-15 11:58] LABS: Prothrombin Time 46.8 Seconds (9.4-12.1)
[2021-01-15] MEDS ORDERED: Ringers Solution, Lactated 1,000 ML IVC SCH (18:45)
[2021-01-15] MEDS ORDERED: OLANZapine 5 MG TAB.RAPDIS PO SCH (21:00)
[2021-01-16 05:17] LABS: Basophils % 0.2 %; Eosinophils # 0.1 K/mcL (0.0-0.6); Eosinophils % 0.5 %; Hematocrit 29.3 % (35.3-44.9); Hemoglobin 9.5 g/dL (11.5-15.4); Immature Granulocytes % 0.6 % (0-4); Lymphocytes # 1.5 K/mcL (0.6-4.6); Lymphocytes % 14.2 %; Mean Corpuscular HGB Conc 32.4 g/dL (31.6-35.5); Mean Corpuscular Hemoglobin 29.9 pg (28.0-33.3); Mean Corpuscular Volume 92.1 fL (83.0-100.0); Mean Platelet Volume 12.2 fL (9.4-12.4); Monocytes # 0.9 K/mcL (0.0-1.3); Monocytes % 8.4 %; Neutrophils # 8.2 K/mcL (1.6-8.9); Platelet Count 134 K/mcL (140-400); Red Blood Count 3.18 M/mcL (3.82-4.97); Red Cell Distribution Width 14.1 % (11.5-14.5); Segmented Neutrophils % 76.1 %; White Blood Count 10.8 K/mcL (4.3-11.1)
[2021-01-16 05:25] LABS: INR 6.9; Prothrombin Time 75.4 Seconds (9.4-12.1)
[2021-01-16 05:33] LABS: Potassium 3.7 mEq/L (3.5-5.1)
[2021-01-16] MEDS: Insulin LISPRO 300 UNITS/3 ML VIAL SUBQ SCH ×4 (09:09→19:59)
[2021-01-16] MEDS: Multivit/Ca/Min/Fe/FA 1 TAB TABLET PO SCH (09:16)
[2021-01-16] MEDS: Ascorbic Acid 500 MG TABLET PO SCH ×2 (09:17→16:46)
[2021-01-16] MEDS: Venlafaxine XR (24 HR) 75 MG CAP.ER.24H PO SCH (09:30)
[2021-01-16] MEDS: *HR* OxyCODONE Immed Rel 5 MG TABLET PO PRN ×2 (09:43→18:40)
[2021-01-16] MEDS ORDERED: Sennosides 8.6 MG TABLET PO PRN (09:54)
[2021-01-16] MEDS ORDERED: 0.9 % Sodium Chloride 1,000 ML IVC SCH (10:00)
[2021-01-16] MEDS: Digoxin Oral Liquid 125 MCG/2.5 ML ORAL.SYG PO SCH (10:54)
[2021-01-16 12:51] LABS: Hemoglobin 9.8 g/dL (11.5-15.4)
[2021-01-16 13:04] LABS: Prothrombin Time 66.7 Seconds (9.4-12.1)
[2021-01-16 13:05] LABS: INR 6.1
[2021-01-16 13:08] LABS: Calcium 8.1 mg/dL (8.6-10.3); Potassium 3.6 mEq/L (3.5-5.1)
[2021-01-16 13:31] LABS: Bacteria,Urine Few per hpf (None-Few); Bilirubin,Urine Negative (Negative); Blood,Urine Negative (Negative); Clarity,Urine Turbid (Clear); Color,Urine Yellow (Yellow); Glucose,Urine (UA) Normal (Normal); Hyaline Casts,Urine Moderate per lpf (None Seen); Ketones,Urine Negative (Negative); Leukocyte Esterase,Urine Negative (Negative); Mucus,Urine Few per lpf (None-Few); Nitrite,Urine Negative (Negative); Protein,Urine Trace mg/dL (Neg-Trace); RBC,Urine 0-3 per hpf (0-3); Specific Gravity,Urine 1.027 (1.010-1.025); Squamous Epithelial Cell,Urine Few per hpf (None-Few); Urobilinogen,Urine Normal (Normal); WBC,Urine 0-3 per hpf (0-3)
[2021-01-16 20:31] LABS: Hematocrit 28.2 % (35.3-44.9); Hemoglobin 9.1 g/dL (11.5-15.4)
[2021-01-17 01:40] LABS: Immature Granulocytes % 0.4 % (0-4); Mean Corpuscular Volume 92.9 fL (83.0-100.0); Mean Platelet Volume 11.9 fL (9.4-12.4); Monocytes % 6.9 %; Red Cell Distribution Width 14.2 % (11.5-14.5)
[2021-01-17 01:42] LABS: Basophils % 0.1 %; Eosinophils # 0.1 K/mcL (0.0-0.6); Eosinophils % 1.2 %; Hematocrit 28.8 % (35.3-44.9); Hemoglobin 9.3 g/dL (11.5-15.4); Immature Platelets 8.1 % (1.1-6.1); Lymphocytes # 1.4 K/mcL (0.6-4.6); Lymphocytes % 12.4 %; Mean Corpuscular HGB Conc 32.3 g/dL (31.6-35.5); Monocytes # 0.8 K/mcL (0.0-1.3); Neutrophils # 8.6 K/mcL (1.6-8.9); Nucleated Red Blood Cells 0.2 /100 WBC (0); Platelet Count 131 K/mcL (140-400); White Blood Count 10.9 K/mcL (4.3-11.1)
[2021-01-17 01:51] LABS: INR 4.3
[2021-01-17 01:57] LABS: Prothrombin Time 47.6 Seconds (9.4-12.1)
[2021-01-17 02:00] LABS: Magnesium 1.9 mg/dL (1.6-2.6); Phosphorous 2.4 mg/dL (2.7-4.5)
[2021-01-17 02:01] LABS: BUN/Creatinine Ratio 54 (6-26); Blood Urea Nitrogen 45 mg/dL (8-23); Calcium 7.9 mg/dL (8.6-10.3); Carbon Dioxide 21 mEq/L (23-29); Chloride 111 mEq/L (98-107); Glucose 112 mg/dL (70-105); Osmolality,Calculated 298 (280-300); Potassium 3.5 mEq/L (3.5-5.1); Sodium 138 mEq/L (136-145); eGFR For African Americans > 60 (> 60); eGFR For Non-African Americans > 60 (> 60)
[2021-01-17] MEDS: Insulin LISPRO 300 UNITS/3 ML VIAL SUBQ SCH ×4 (08:26→21:11)
[2021-01-17] MEDS ORDERED: Iron Sucrose Complex 200 MG in 0.9 % Sodium Chloride 100 ML IVPB ONE (08:30)
[2021-01-17] MEDS: Ascorbic Acid 500 MG TABLET PO SCH ×2 (09:16→17:42)
[2021-01-17] MEDS: Multivit/Ca/Min/Fe/FA 1 TAB TABLET PO SCH (09:16)
[2021-01-17] MEDS: Digoxin Oral Liquid 125 MCG/2.5 ML ORAL.SYG PO SCH (09:19)
[2021-01-17] MEDS ORDERED: *HR* LORazepam 0.5 MG TABLET PO PRN (11:38)
[2021-01-17] MEDS: *HR* OxyCODONE Immed Rel 5 MG TABLET PO PRN (17:50)
[2021-01-17] MEDS: Metoprolol XL (24 HR) Succ 25 MG TAB.ER.24H PO SCH (21:16)
[2021-01-18 01:32] LABS: INR 2.9; Prothrombin Time 32.6 Seconds (9.4-12.1)
[2021-01-18 01:35] LABS: Basophils % 0.3 %; Eosinophils # 0.1 K/mcL (0.0-0.6); Eosinophils % 1.1 %; Hematocrit 27.5 % (35.3-44.9); Hemoglobin 8.8 g/dL (11.5-15.4); Immature Granulocytes % 0.4 % (0-4); Lymphocytes # 1.3 K/mcL (0.6-4.6); Lymphocytes % 12.4 %; Mean Corpuscular Hemoglobin 29.6 pg (28.0-33.3); Mean Corpuscular Volume 92.6 fL (83.0-100.0); Mean Platelet Volume 11.9 fL (9.4-12.4); Monocytes # 0.7 K/mcL (0.0-1.3); Monocytes % 6.3 %; Neutrophils # 8.6 K/mcL (1.6-8.9); Platelet Count 149 K/mcL (140-400); Red Blood Count 2.97 M/mcL (3.82-4.97); Segmented Neutrophils % 79.5 %; White Blood Count 10.8 K/mcL (4.3-11.1)
[2021-01-18 01:50] LABS: BUN/Creatinine Ratio 56 (6-26); Blood Urea Nitrogen 33 mg/dL (8-23); Calcium 8.1 mg/dL (8.6-10.3); Carbon Dioxide 22 mEq/L (23-29); Chloride 114 mEq/L (98-107); Glucose 129 mg/dL (70-105); Osmolality,Calculated 301 (280-300); Sodium 141 mEq/L (136-145); eGFR For African Americans > 60 (> 60); eGFR For Non-African Americans > 60 (> 60)
[2021-01-18 01:51] LABS: Magnesium 1.9 mg/dL (1.6-2.6); Phosphorous 1.7 mg/dL (2.7-4.5)
[2021-01-18] MEDS: Digoxin Oral Liquid 125 MCG/2.5 ML ORAL.SYG PO SCH (08:08)
[2021-01-18] MEDS: Metoprolol XL (24 HR) Succ 25 MG TAB.ER.24H PO SCH ×2 (08:08→23:03)
[2021-01-18] MEDS: Ascorbic Acid 500 MG TABLET PO SCH ×2 (08:08→18:41)
[2021-01-18] MEDS: Multivit/Ca/Min/Fe/FA 1 TAB TABLET PO SCH (08:08)
[2021-01-18] MEDS: Insulin LISPRO 300 UNITS/3 ML VIAL SUBQ SCH ×4 (08:22→23:04)
[2021-01-18] MEDS ORDERED: *HR* Warfarin 0.5 MG TABLET PO ONE (18:00)
[2021-01-18] MEDS ORDERED: Warfarin perPT PO PRN (18:00)
[2021-01-19 06:42] LABS: Hematocrit 29.5 % (35.3-44.9); Hemoglobin 9.3 g/dL (11.5-15.4)
[2021-01-19 06:45] LABS: INR 2.1; Prothrombin Time 24.2 Seconds (9.4-12.1)
[2021-01-19] MEDS: Multivit/Ca/Min/Fe/FA 1 TAB TABLET PO SCH (09:10)
[2021-01-19] MEDS: Insulin LISPRO 300 UNITS/3 ML VIAL SUBQ SCH (09:11)
[2021-01-19] MEDS: Digoxin Oral Liquid 125 MCG/2.5 ML ORAL.SYG PO SCH (09:11)
[2021-01-19] MEDS: Metoprolol XL (24 HR) Succ 25 MG TAB.ER.24H PO SCH (09:11)
[2021-01-19] MEDS: Ascorbic Acid 500 MG TABLET PO SCH (09:11)
[2021-01-19 11:04] VITALS: BP 121/54
[2021-01-19 11:58] LABS: Adenovirus Not Detected (Not Detect); Bordetella Pertussis Not Detected (Not Detect); Chlamydophila pneumoniae Not Detected (Not Detect); Coronavirus 229E Not Detected (Not Detect); Coronavirus HKU1 Not Detected (Not Detect); Coronavirus NL63 Not Detected (Not Detect); Coronavirus OC43 Not Detected (Not Detect); Human Metapneumovirus Not Detected (Not Detect); Human Rhinovirus/Enterovirus Not Detected (Not Detect); Influenza A Subtype 2009 H1 Not Detected (Not Detect); Influenza B Not Detected (Not Detect); Mycoplasma pneumoniae Not Detected (Not Detect); Parainfluenza Virus 1 Not Detected (Not Detect); Parainfluenza Virus 2 Not Detected (Not Detect); Parainfluenza Virus 3 Not Detected (Not Detect); Parainfluenza Virus 4 Not Detected (Not Detect); Respiratory Syncytial Virus Not Detected (Not Detect); SARS-CoV-2 Not Detected (Not Detect)
[2021-01-19] MEDS ORDERED: *HR* Warfarin 0.5 MG TABLET PO ONE (18:00)
== END 2021-01-19 13:28 | DRG 521 ==
LOC: 3NENU → SUATTDRO 20:08
PROVIDERS: ADMIT General Practice; ATTEND Internal Medicine